=== PATIENT | female | born 1930 | race Asian ===

== ENCOUNTER 2019-05-12 16:17 | Inpatient (IN) | payer OTHER ==
[~2019-05-12] VITALS: Ht 152.4 cm; Wt 44.0 kg
[2019-05-12 16:25] VITALS: Ht 152.4 cm; Wt 44.0 kg
--- NOTE | 2019-05-12 16:27 | NUR ---
PT BIB AMBULANC TODAY WITH C/C OF NEAR SYNCOPAL. PER MEDICS, PT WAS AT HOME GARDENING. PT REPORTS THAT SHE BEGAN FEELING DIZZY AND SAT DOWN. PT NO LONGER REPORTING THAT SHE FEELS DIZZY. NO TRAUMA NOTED. PT IS AWAKE AND ALERT, RESP E/U, ABLE TO RECALL ENTIRE EVENT, SPEAKING IN FULL CLEAR SENTENCES, NAD NOTED AWAITING MSE.
[2019-05-12 16:54] LABS: CALCIUM 8.9 mg/dL (8.5-10.1); CHLORIDE SERUM 108 mmol/L (98-107); CREATININE SERUM 0.9 mg/dL (0.6-1.0); GLUCOSE SERUM 114 mg/dL (74-106); POTASSIUM SERUM 3.4 mmol/L (3.5-5.1); SODIUM SERUM 145 mmol/L (136-145)
--- NOTE | 2019-05-12 16:57 | NUR ---
DR BOOKER AT BEDSIDE FOR MSE
[2019-05-12 16:59] LABS: ALKALINE PHOSPHATASE 70 U/L (46-116); ALT/SGPT 15 U/L (14-59); AST/SGOT 21 U/L (15-37); BILIRUBIN TOTAL 0.69 mg/dL (0.20-1.00); TOTAL PROTEIN, SERUM 6.5 g/dL (6.4-8.2)
[2019-05-12 17:00] LABS: ALBUMIN 3.2 g/dL (3.4-5.0)
--- NOTE | 2019-05-12 17:02 | NUR ---
PT AMBULATED TO THE RESTROOM WITH SON WITH STEADY GAIT AND NAD
[2019-05-12 17:05] LABS: PLATELET COUNT 165 x10^3mcL (130-400)
[2019-05-12 17:07] LABS: RED CELL DISTRIBUTION WIDTH 14.6 % (11.5-14.5)
--- NOTE | 2019-05-12 17:10 | NUR ---
PT AMBULATED TO CT AFTER USING RESTROOM WITH STEADY GAIT AND NAD
[2019-05-12 17:12] LABS: microscopic required? NO
[2019-05-12 17:22] LABS: urine erythrocyte NEGATIVE (NEGATIVE)
[2019-05-12] MEDS ORDERED: COZAAR100 MG PO (17:55)
[2019-05-12] MEDS ORDERED: NOR5 PO (17:56)
[2019-05-12 18:33] LABS: CHOLESTEROL/HDL RATIO 2.6
[2019-05-12 18:39] LABS: T3 TOTAL 1.15 ng/mL
--- NOTE | 2019-05-12 18:44 | NUR ---
REPORT GIVEN TO IAN BECKMAN ON MS/ T FOR FURTHER CARE OF PT
--- NOTE | 2019-05-12 18:45 | NUR ---
PT AMBULATED TO THE RESTROOM WITH SON WITH STEADY GAIT AND NAD
[2019-05-12 18:54] LABS: FREE T4 1.09 ng/dL (0.76-1.46); FREE THYROXINE INDEX 3.3 ug/dL (1.4-4.5); T4(THYROXINE) 9.1 ug/dL (4.7-13.3)
--- NOTE | 2019-05-12 19:25 | NUR ---
PT TRANSFERRED TO TELE FLOOR VIA GURNEY. PT CONNECTED TO MONITOR DURING TRANSFER. NO S/S OF DISTRESS. RESP E/U. IV SITE PATENT, PT DENIES PAIN OR DISCOMFORT TO SITE.
--- NOTE | 2019-05-12 19:44 | NUR ---
[facility] ACCOMPANIED BY RN, TRANSPORTER, AND PT'S SON, ADRIANNA MYRICK, WHO ALSO SERVED [employer] HAND FOR THE PT. PT A/A/O X 4, CALM, COOPERATIVE; WEARS GLASSES (W/ PT). AMBULATORY, NO GAIT OR BALANCE IMPAIRMENT NOTED WHEN WALKING FROM GURNEY TO BED. ON TELE # 1, HR 74, NSR, DENIES CHEST PAIN, DISCOMFORT, OR DIZZINESS. AMEE RADIAL AND PEDAL PULSES PRESENT, TRACE EDEMA TO BLE, CAP REFILL < 3 SECS, SCD BY BEDSIDE. NO ACUTE RESPIRATORY DISTRESS NOTED. ABD SOFT, FLAT, NON-TENDER, NORMOACTIVE BOWEL SOUNDS X 4 QUADS, LAST BM 05/12/19, FORMED; PT ON ASPIRATION PRECAUTIONS ORDERED. IV SITE LAC 20G, CDI. ORIENTED PT AND SON TO ROOM, BED CONTROLS, CALL LIGHT SYSTEM. SIDE RAILS UP X 2, BED IN LOW POSITION. WILL ENDORSE TO KARUNA SARABIA.
--- NOTE | 2019-05-12 19:50 | NUR ---
REPORT RECEIVED FROM IAN BECKMAN. PATIENT WAS SEEN RESTING COMFORTABLY IN BED WITH SON AT BEDSIDE. DENIES GUY OR DIZZINESS. BELONGINGS AT BEDSIDE. BREATHING EVEN AND UNLABORED ON ROOM AIR. NO SOB OR RESP DISTRESS NOTED. TELE#1 NSR. DENIES CHEST PAIN/PRESSURE. IV TO THE LAC. PATENT AND INTACT. NO REDNESS OR SWELLING NOTED. NO C/O PAIN. PATIENT GIVEN SANDWICH AND WATER. COMFORT AND SAFETY MEASURES IN PLACE. CALL LIGHT IS WITHIN REACH. BED IS LOCKED AND IN THE LOWEST POSITION. SIDE RAILS UP X2. CALL LIGHT IS WITHIN REACH. WILL CONTINUE TO MONITOR.
[2019-05-12 20:28] VITALS: BP 153/74
[2019-05-12 20:30] VITALS: BP 171/78
[2019-05-12 20:33] VITALS: BP 157/80
--- NOTE | 2019-05-12 21:05 | NUR ---
NOTIFIED DR LIN ABOUT EKG RESULTS.
--- NOTE | 2019-05-12 21:31 | NUR ---
HR WENT DOWN TO 38. PATIENT LAYING IN BED WATCHING TV. NO DISTRESS NOTED. DENIES CHEST PAIN/PRESSURE. BREATHING EVEN AND UNLABORED ON ROOM AIR. HX OF BRADYCARDIA
--- NOTE | 2019-05-12 22:33 | NUR ---
HR IN BETWEEN 35-40. PATIENT IS ASLEEP AND EASILY AROSUABLE BY VERBAL STIMULI. INFORMED PATIENT THAT HR IS VERY LOW. PATIENT STATES "YES MY HEART IS SLOW. IT'S BEEN LIKE THIS FOR MANY YEARS NOW". NO DISTRESS NOTED. PATIENT DENIES CHEST PAIN/PRESSURE. DENIES SOB. BREATHING EVEN AND UNLABORED ON ROOM AIR. DR LIN NOTIFIED AND IS AWARE. WILL CONTINUE TO MONITOR.
--- NOTE | 2019-05-13 00:19 | NUR ---
RESTING IN BED COMFORTABLY WITH EYES CLOSED. NO DISTRESS NOTED. IVF INFUSING WELL. PATENT AND INTACT. BREATHING EVEN AND UNLABORED ON ROOM AIR. NO S/S OF PAIN NOTED. SAFETY MEASURES IN PLACE. CALL LIGHT IS WITHIN REACH. WILL CONTINUE TO MONITOR.
--- NOTE | 2019-05-13 02:07 | NUR ---
RESTING IN BED WITH EYES CLOSED. NO DISTRESS NOTED. BREATHING EVEN AND UNLABORED ON ROOM AIR. NO SOB NOTED. IVF INFUSING WELL TO LAC. NO S/S OF PAIN NOTED. SAFETY MEASURES IN PLACE. CALL LIGHT IS WITHIN REACH. WILL CONTINUE TO MONITOR.
[2019-05-13 04:35] VITALS: BP 146/67
--- NOTE | 2019-05-13 05:57 | NUR ---
RESTED IN LONG INTERVALS THROUGHOUT THE NIGHT. NO ACUTE CHANGES NOTED. NO DISTRESS NOTED. BREATHING EVEN AND UNLABORED ON ROOM AIR. NO SOB OR RESP DISTRESS NOTED. DENIES CHEST PAIN/PRESSURE. LOW HR THROUGHOUT THE NIGHT. ASYMPTOMATIC. NO C/O PAIN THROUGHOUT THE NIGHT. IVF INFUSING WELL. PATENT AND INTACT. NO REDNESS OR SWELLING NOTED. SAFETY MEASURES IN PLACE. CALL LIGHT IS WITHIN REACH. WILL ENDORSE CARE TO ONCOMING RN.
[2019-05-13 06:35] LABS: CALCIUM 8.1 mg/dL (8.5-10.1); CARBON DIOXIDE 27.1 mmol/L (21-32); CHLORIDE SERUM 111 mmol/L (98-107); CREATININE SERUM 0.7 mg/dL (0.6-1.0); GLUCOSE SERUM 79 mg/dL (74-106); MAGNESIUM 2.1 mg/dL (1.8-2.4); PHOSPHOROUS 3.2 mg/dL (2.5-4.9); POTASSIUM SERUM 4.6 mmol/L (3.5-5.1); SODIUM SERUM 145 mmol/L (136-145)
[2019-05-13 06:52] LABS: BASOPHIL % 0.6 % (0-2); PLATELET COUNT 173 x10^3mcL (130-400)
[2019-05-13 06:54] LABS: RED CELL DISTRIBUTION WIDTH 14.7 % (11.5-14.5)
--- NOTE | 2019-05-13 07:30 | NUR ---
RECEIVED PT FROM [employer] AD[employer]. ASSESSED AND DOCUMENTED. DENIES ANY PAIN. STABLE. SAFTEY PRECAUTIONS ARE IN PLACE. WILL MONITOR.
[2019-05-13 08:39] VITALS: BP 158/64
--- NOTE | 2019-05-13 10:00 | NUR ---
PT RESTING IN BED COMFORTABLY. HR DROPS ON AND OFF IN 30'S BUT DENIES ANY CHEST PAIN. NO DIZZINESS NOTED. STABLE. AWARE ABOUT BRADYCARDIA WITH HR IN 30'S.
[2019-05-13] MEDS ORDERED: ECO81 PO (10:59)
[2019-05-13 11:56] VITALS: BP 131/56
[2019-05-13 12:46] VITALS: BP 131/56
--- NOTE | 2019-05-13 13:00 | NUR ---
PT'S SON AT BEDSIDE. DISCHARGE INSTRUCTIONS GIVEN. PB SIGNED AND SENT WITH PT. IV REMOVED AND DRESSING APPLIED. TELE REMOVED AND RETURNED. DENIES ANY PAIN. STABLE. PATTERN PERFORATING MACHINE OPERATOR WHEELED PT DOWN TO DC OFFICE ACCOMPANIED WITH PT'S SON. PT DC HOME.
--- NOTE | 2019-05-14 09:30 | NUR ---
ECHOCARDIOGRAM NOT DONE-DISCHARGED
== END 2019-05-13 13:15 | disposition home or self-care (01) | DRG 922 ==
LOC: ED 16:17 → DU 17:47
PROVIDERS: Emergency Medicine; ADMIT Internal Medicine
DX: T67.5XXA Heat exhaustion, unspecified, initial encounter (principal); N17.0 Acute kidney failure with tubular necrosis; E44.0 Moderate protein-calorie malnutrition; Z68.1 Body mass index [BMI] 19.9 or less, adult; E87.5 Hyperkalemia; E86.0 Dehydration; R00.1 Bradycardia, unspecified; R55 Syncope and collapse; I10 Essential (primary) hypertension; Z79.82 Long term (current) use of aspirin; X30.XXXA Exposure to excessive natural heat, initial encounter; Y93.H2 Activity, gardening and landscaping; Y92.017 Garden or yard in single-family (private) house as the place of occurrence of the external cause; Y99.8 Other external cause status
CPT/HCPCS: 83880; 84439; G0378; J7030; Q0092